=== PATIENT | female | born 2000 | race Caucasian/White ===

== ENCOUNTER 2024-11-11 06:52 | Emergency (ER) | payer BC ==
[~2024-11-11] VITALS: Ht 175.3 cm; Wt 63.5 kg
[2024-11-11 07:04] VITALS: TEMP 98
[2024-11-11] MEDS ORDERED: ONDANSETRON HCL/PF 4 MG/2 ML VIAL ONE ×2 (07:30→08:17)
[2024-11-11] MEDS ORDERED: KETOROLAC TROMETHAMINE 15 MG/ML VIAL ONE (07:30)
[2024-11-11] MEDS ORDERED: ONDA4TAB5 PO (07:39)
[2024-11-11] MEDS: ONDANSETRON HCL/PF 4 MG/2 ML VIAL IVP ONE (07:41)
[2024-11-11 07:42] LABS: BASOPHILS % (AUTO) 0.3 % (0.0-2.0); EOSINOPHILS % (AUTO) 0.1 % (0.0-6.0); HEMATOCRIT 44 % (33-45); LYMPHOCYTES # (AUTO) 0.8 K/uL (0.8-4.8); LYMPHOCYTES % (AUTO) 7.8 % (20.0-44.0); MEAN CORPUSCULAR HEMOGLOBIN 31 PG (26.0-33.0); MEAN CORPUSCULAR HGB CONC 34 g/dl (31.0-36.0); MEAN CORPUSCULAR VOLUME 91 fL (82-100); MONOCYTES # (AUTO) 0.3 K/uL (0.1-1.30); MONOCYTES % (AUTO) 2.9 % (2.0-12.0); NEUTROPHILS % (AUTO) 88.9 % (43.0-81.0); PLATELET COUNT (AUTO) 237 K/uL (150-450); RED BLOOD CELL COUNT(AUTO) 4.87 MIL/uL (4.0-5.2); RED CELL DISTRIBUTION WIDTH 12.8 % (11.5-15.0); WHITE BLOOD COUNT (AUTO) 10.2 K/uL (4.3-11.0)
[2024-11-11] MEDS: IV NS 0.9% 1,000 ML BAG IV ONE (07:42)
[2024-11-11] MEDS: KETOROLAC TROMETHAMINE 15 MG/ML VIAL IV ONE (07:53)
[2024-11-11 07:54] LABS: BILIRUBIN,DIRECT 0.2 mg/dL (0.0-0.2); BILIRUBIN,TOTAL 0.9 mg/dL (0.2-1.0); CALCIUM, SERUM 9.9 mg/dL (8.5-10.1); CREATININE 0.9 mg/dL (0.6-1.3); POTASSIUM 3.1 mmol/L (3.5-5.1); TOTAL PROTEIN, SERUM 8.2 g/dL (6.4-8.2)
[2024-11-11] MEDS ORDERED: LORAZEPAM INJ 2 MG/ML VIAL ONE (08:18)
[2024-11-11] MEDS: LORAZEPAM INJ 2 MG/ML VIAL IV ONE (08:21)
[2024-11-11] MEDS: ONDANSETRON HCL/PF - ER 4 MG/2 ML VIAL IV ONE (08:22)
[2024-11-11 09:15] VITALS: BP 126/78; O2SAT 100
== END 2024-11-11 09:16 | disposition home or self-care (01) ==
LOC: ER 06:52
DX: R11.2 Nausea with vomiting, unspecified (principal); R10.84 Generalized abdominal pain; R50.9 Fever, unspecified; Z90.710 Acquired absence of both cervix and uterus
CPT/HCPCS: 99284; 96374; 96375; 96361; 96376; 85025; 80048; 83690; 80076; 84703; 36415; J1885; J2060; J2405 ×3; J7030

== ENCOUNTER 2024-12-02 07:07 | Emergency (ER) | payer BC ==
[~2024-12-02] VITALS: Ht 175.3 cm; Wt 63.5 kg
[~2024-12-02 07:07] MED LIST: ONDA4TAB5 PO
[2024-12-02] MEDS ORDERED: FAMOTIDINE/PF INJ 20 MG/2 ML VIAL IV ONE (07:41)
[2024-12-02] MEDS ORDERED: ONDANSETRON HCL/PF 4 MG/2 ML VIAL ONE (07:41)
[2024-12-02] MEDS: IV NS 0.9% 1,000 ML BAG IV ONE (07:46)
[2024-12-02] MEDS: ONDANSETRON HCL/PF 4 MG/2 ML VIAL IVP ONE (07:47)
[2024-12-02] MEDS: FAMOTIDINE/PF INJ 20 MG/2 ML VIAL IV ONE (07:47)
[2024-12-02 07:48] LABS: PLATELET COUNT (AUTO) 256 K/uL (150-450); RED BLOOD CELL COUNT(AUTO) 4.67 MIL/uL (4.0-5.2); RED CELL DISTRIBUTION WIDTH 12.8 % (11.5-15.0); WHITE BLOOD COUNT (AUTO) 9.3 K/uL (4.3-11.0)
[2024-12-02 08:01] LABS: CALCIUM, SERUM 9.6 mg/dL (8.5-10.1); CREATININE 0.9 mg/dL (0.6-1.3); SODIUM SERUM 136.0 mmol/L (136-145); UREA NITROGEN, BLOOD 9.0 mg/dL (7-18)
[2024-12-02 08:07] LABS: ASPARTATE AMINOTRANSFERASE 15.0 U/L (15-37); TOTAL PROTEIN, SERUM 7.8 g/dL (6.4-8.2)
[2024-12-02] MEDS ORDERED: HALOPERIDOL LACTATE INJ 5 MG/ML VIAL ONE (08:11)
[2024-12-02] MEDS: HALOPERIDOL LACTATE INJ 5 MG/ML VIAL IV ONE (08:14)
[2024-12-02] MEDS ORDERED: METOCLOPRAMIDE HCL 10 MG/2 ML VIAL ONE (09:08)
[2024-12-02] MEDS: METOCLOPRAMIDE HCL 10 MG/2 ML VIAL IV ONE (09:18)
[2024-12-02] MEDS ORDERED: ONDA4TAB5 PO (09:48)
[2024-12-02 10:09] VITALS: BP 119/78; TEMP 97.5; O2SAT 96
== END 2024-12-02 10:09 | disposition home or self-care (01) ==
LOC: ER 07:10
DX: R11.2 Nausea with vomiting, unspecified (principal); R10.2 Pelvic and perineal pain; Z90.710 Acquired absence of both cervix and uterus
CPT/HCPCS: 99284; 96374; 96375; 96361; 85025; 80048; 83690; 80076; 36415; 84702; J1200; J1630; J1308; J2765; J2405; J7030